=== PATIENT | male | born 1975 | race Hispanic/Latino ===

== ENCOUNTER 2020-06-23 23:57 | Observation (INO) | payer BC ==
[2020-06-24 01:51] VITALS: BMI 41.1
[2020-06-24] MEDS ORDERED: Acetaminophen 650 MG Suppository PR PRN (04:43)
[2020-06-24] MEDS ORDERED: HYDROcodone/Acetaminophen 5/325 mg Tablet PO PRN (04:43)
[2020-06-24] MEDS ORDERED: Calcium Carbonate 500 MG ChewTAB PO PRN (04:43)
[2020-06-24] MEDS ORDERED: Acetaminophen 325 MG TAB PO PRN (04:43)
[2020-06-24] MEDS ORDERED: Dextrose 50% Abboject 50 ML SYRINGE SLOW IVP PRN (04:49)
[2020-06-24] MEDS ORDERED: Dextrose 5% in Water 1,000 ML IV PRN (04:49)
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
[2020-06-24] MEDS: Sodium Chloride 0.9% 1,000 ML IV SCH ×2 (05:19→13:52)
[2020-06-24] MEDS: HumaLOG 300 UNITS/3 ML VIAL SC PRN ×2 (05:25→12:42)
[2020-06-24 07:25] LABS: Lactic Acid 1.7 mmol/L (0.5-2.2)
[2020-06-24] MEDS ORDERED: Enoxaparin Sodium 40 MG/0.4 ML SYRINGE SC SCH (09:00)
[2020-06-24] MEDS ORDERED: FLU VACC QS2020-21(6MOS UP)/PF 60 MCG/0.5 ML SYRINGE IM ONE (09:00)
[2020-06-24 10:17] LABS: SARS-CoV-2 MS2 Positive; SARS-CoV-2 N Gene Negative; SARS-CoV-2 S Gene Negative; SARS-CoV-2 by NAA Not Detected (NotDetected); SARS-CoV-2 orf1ab Negative
[2020-06-24 11:26] VITALS: BP 146/73; TEMP 98.8
[2020-06-24 11:27] LABS: Hemoglobin A1c 11.1 % (4.0-6.0)
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
== END 2020-06-24 15:50 | disposition home or self-care (01) ==
LOC: 2NO 23:57
PROVIDERS: ADMIT Internal Medicine; ATTEND Internal Medicine
DX: E11.10 Type 2 diabetes mellitus with ketoacidosis without coma (principal); E11.65 Type 2 diabetes mellitus with hyperglycemia; R79.89 Other specified abnormal findings of blood chemistry; Z79.84 Long term (current) use of oral hypoglycemic drugs; Z20.822 Contact with and (suspected) exposure to COVID-19; V89.2XXA Person injured in unspecified motor-vehicle accident, traffic, initial encounter
CPT/HCPCS: 36415; 36416; 83036; 83605; 84439; 87635; 96372; G0378; J1650; U0003